=== PATIENT | female | born 1985 | race Hispanic/Latino ===

== ENCOUNTER 2019-03-08 14:44 | Emergency (ER) | payer SELFPAY ==
[2019-03-08 15:42] LABS: Absolute Lymphocytes (CBC) 1.1 K/uL (0.7-4.9); Basophils % 0.2 % (0-1.3); Hematocrit 36.2 % (36.0-45.0); Lymphocytes % 17.7 % (15.3-44.8); MPV 9.4 fL (7.6-11.3); RBC Red Blood Cell Count 3.81 M/uL (3.86-4.86)
[2019-03-08 15:43] LABS: Urine Blood 3+ (NEG); Urine Glucose NEGATIVE (NEG); Urine Protein 2+ (NEG); Urine Specific Gravity 1.025 (1.005-1.030)
[2019-03-08 15:50] LABS: Barbiturates NEGATIVE (NEGATIVE); Benzodiazepines NEGATIVE (NEGATIVE); Cocaine NEGATIVE (NEGATIVE); METHAMPHETAM NEGATIVE (NEGATIVE); Methadone NEGATIVE (NEGATIVE); Opiates NEGATIVE (NEGATIVE); Phencyclidine NEGATIVE (NEGATIVE); THC Cannibis NEGATIVE (NEGATIVE)
[2019-03-08 15:53] LABS: Protime INR 0.99
--- NOTE | 2019-03-08 15:55 | EKG ---
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
[2019-03-08 15:58] LABS: ALT/SGPT 15 U/L (12-78); AST/SGOT 10 U/L (15-37); Albumin 3.8 g/dL (3.4-5.0); Alkaline Phosphatase 42 U/L (45-117); BUN Blood Urea Nitrogen 15 mg/dL (7-18); Bicarbonate 25 mmol/L (21-32); Bilirubin Direct < 0.1 mg/dL (0-0.2); Bilirubin Total 0.2 mg/dL (0.2-1.0); Glucose Level 101 mg/dL (74-106); Potassium 3.5 mmol/L (3.5-5.1); Protein, Total 7.1 g/dL (6.4-8.2); Sodium Level 143 mmol/L (136-145)
[2019-03-08 16:03] LABS: Urine Bacteria 20-50 /HPF (<20); Urine Culture Reflex Order REFLEXED
--- NOTE | 2019-03-08 16:10 | RAD REPORT ---
EXAM DESCRIPTION: CT - Head Brain Wo Cont - 03/08/2019 4:06 pm CLINICAL HISTORY: seizure, LOC Headache, drowsiness, seizure COMPARISON: No comparisons TECHNIQUE: All CT scans are performed using dose optimization technique as appropriate and may inclu de automated exposure control or mA/KV adjustment according to patient size. FINDINGS: No intracranial hemorrhage, hydrocephalus or extra-axial fluid collection.No areas of brai n edema or evidence of midline shift. The paranasal sinuses and mastoids are clear. The calvarium is intact. IMPRESSION: No acute intracranial abnormality.
[2019-03-08] MEDS ORDERED: NA CHLORIDE 0.9% 1,000 ML ONE (16:33)
--- NOTE | 2019-03-08 18:54 | ER ---
Nurse's Notes [facility] Name: Manuela Beauchamp Age: 33 yrs Sex: Female : 1985 Arrival Date: 03/08/2019 Time: 14:48 Bed 27 Private MD: Diagnosis: Seizure Presentation: 03/08 14:48 Presenting complaint: EMS states: patient was eating lunch in her workplace ([employer]) mg2 today when she had a seizure unknown duration. last seizure she had was 5 months ago and she is on medication ( carbamazepine) and she took it \T\ 0500 today. BGL 163 mg/dl. Transition of care: patient was not received from another setting of care. Onset of symptoms was March 08, 2019. Risk Assessment: Do you want to hurt yourself or someone else? Patient reports no desire to harm self or others. Initial Sepsis Screen: Does the patient meet any 2 criteria? No. Patient's initial sepsis screen is negative. Does the patient have a suspected source of infection? No. Patient's initial sepsis screen is negative. Care prior to arrival: None. 14:48 Method Of Arrival: EMS: [place] [id number] 14:48 Acuity: MIKAEL 3 mg2 Triage Assessment: 14:54 General: Appears in no apparent distress. comfortable, Behavior is calm, cooperative. mg2 Pain: Complains of pain in head and abdomen Pain does not radiate. Pain currently is 4 out of 10 on a pain scale. EENT: No deficits noted. Neuro: Level of Consciousness is awake, alert, obeys commands, Oriented to person, place, time, situation, Reports headache. Cardiovascular: Capillary refill < 3 seconds Patient's skin is warm and dry. Respiratory: Airway is patent Respiratory effort is even, unlabored, Respiratory pattern is regular, symmetrical. GI: Reports lower abdominal pain, upper abdominal pain, nausea. : No signs and/or symptoms were reported regarding the genitourinary system. Derm: Skin is intact, is healthy with good turgor, Skin is pink, warm \T\ dry. normal. Musculoskeletal: Circulation, motion, and sensation intact. Capillary refill < 3 seconds. 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 - Social history:: Smoking status: Patient/guardian denies using tobacco. - Ebola Screening: : No symptoms or risks identified at this time. Screenin:55 Abuse screen: Denies threats or abuse. Denies injuries from another. Nutritional mg2 screening: No deficits noted. Tuberculosis screening: No symptoms or risk factors identified. Fall Risk Secondary diagnosis (15 points) seizures. Assessment: 14:55 Reassessment: see triage assessment. mg2 19:01 Reassessment: Patient appears in no apparent distress at this time. Patient denies pain mg2 at this time. Vital Signs: 14:51 BP 130 / 73; Pulse 79; Resp 18; Temp 99.1; Pulse Ox 95% on R/A; Weight 68.95 kg; Height mg2 5 ft. 3 in. (160.02 cm); Pain 4/10; 16:36 BP 128 / 80; Pulse 74; Resp 18; Pulse Ox 100% on R/A; mg2 18:48 BP 117 / 85; Pulse 69; Resp 17; Pulse Ox 98% on R/A; rv 14:51 Body Mass Index 26.93 (68.95 kg, 160.02 cm) mg2 ED Course: 14:48 Patient arrived in ED. mg2 14:51 Triage completed. mg2 14:54 Arm band placed on. mg2 14:56 Patient has correct armband on for positive identification. Pulse ox on. NIBP on. Door mg2 closed. Warm blanket given. 15:04 Daryn Chatterjee, RN is Primary Nurse. mg2 15:04 EKG done, by medtronics technician. reviewed by Ivan Shannon MD. sm3 15:05 No provider procedures requiring assistance completed. Inserted saline lock: 20 gauge mg2 in right antecubital area, using aseptic technique. Blood collected. 15:09 Salty Abdalla PA is PHCP. oswaldo 16:06 CT completed. Patient tolerated procedure well. Patient moved to CT via wheelchair. Patient moved back from CT. 16:11 CT Head Brain wo Cont In Process Unspecified. EDMS 18:37 Alfredo Shannon MD is Referral Physician. jmm 18:49 IV discontinued, intact, bleeding controlled, No redness/swelling at site. Pressure rv dressing applied. 19:23 Primary Nurse role handed off by Daryn Chatterjee, RN mg2 Administered Medications: 16:26 Drug: NS 0.9% 1000 ml Route: IV; Rate: 1 bolus; Site: right antecubital; mg2 18:50 Follow up: IV Status: Completed infusion; IV Intake: 1000ml rv Point of Care Testing: Blood Glucose: 15:05 Blood Glucose: 119 mg/dL; mg2 Ranges: Intake: 18:50 IV: 1000ml; Total: 1000ml. rv Outcome: 18:37 Discharge ordered by . enrique 18:49 Discharged to home ambulatory, WITH CO-WORKERS rv 18:49 Condition: good 18:49 Discharge instructions given to patient, Instructed on discharge instructions, follow up and referral plans. Demonstrated understanding of instructions, follow-up care. 19:02 Patient left the ED. mg2 19:39 Patient left the ED. mg2 Signatures: Dispatcher [employer] EDMS Salty Abdalla PA PA Ulysses Blum Daryn Chatterjee, RN RN mg2 [facility] Owen Rosales RN RN rv
--- NOTE | 2019-03-08 18:55 | EDPHYS ---
Physician Documentation [facility] Name: Manuela Beauchamp Age: 33 yrs Sex: Female : 1985 Arrival Date: 03/08/2019 Time: 14:48 Bed 27 Private MD: ED Physician HPI: 03/08 16:30 This 33 yrs old Female presents to ER via EMS with complaints of seizure, LOC. jmm 16:30 The patient presents the episode(s) was witnessed, by co-worker(s). Character of jmm seizure(s): Loss of consciousness: the patient experienced loss of consciousness, Motor activity: blank stare. Seizure onset: just prior to arrival. This is a 33 year old female with a history seizure. Patient states she does not recall the episode and currently denies history of seizures. According to those whom witnessed the event the patient clinched her jaw. No tongue injury or loss of continence. Patient denies any chest pain, denies shortness of breath. . 18:32 Patient states taking carbamazepine over the past week for musculoskeletal pain. . 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 - Social history:: Smoking status: Patient/guardian denies using tobacco. - Ebola Screening: : No symptoms or risks identified at this time. ROS: 16:30 Constitutional: Negative for fever, chills, and weight loss, Cardiovascular: Negative jmm for chest pain, palpitations, and edema, Respiratory: Negative for shortness of breath, cough, wheezing, and pleuritic chest pain. 16:30 Neuro: Positive for loss of consciousness, seizure activity. 16:30 All other systems are negative. Exam: 16:30 Constitutional: This is a well developed, well nourished patient who is awake, alert, jmm and in no acute distress. Head/Face: atraumatic. Eyes: EOMI, no conjunctival erythema appreciated ENT: Moist Mucus Membranes Neck: Trachea midline, Supple Chest/axilla: Normal chest wall appearance and motion. Cardiovascular: Regular rate and rhythm. No edema appreciated Respiratory: Normal respirations, no respiratory distress appreciated Abdomen/GI: Non distended, soft Back: Normal ROM Skin: General appearance color normal MS/ Extremity: Moves all extremities, no obvious deformities appreciated, no edema noted to the lower extremities Neuro: Awake and alert, normal gait Psych: Behavior is normal, Mood is normal, Patient is cooperative and pleasant 18:51 ECG was reviewed by the Attending Physician. [facility] Vital Signs: 14:51 BP 130 / 73; Pulse 79; Resp 18; Temp 99.1; Pulse Ox 95% on R/A; Weight 68.95 kg; Height mg2 5 ft. 3 in. (160.02 cm); Pain 4/10; 16:36 BP 128 / 80; Pulse 74; Resp 18; Pulse Ox 100% on R/A; mg2 18:48 BP 117 / 85; Pulse 69; Resp 17; Pulse Ox 98% on R/A; rv 14:51 Body Mass Index 26.93 (68.95 kg, 160.02 cm) mg2 MDM: 15:27 Patient medically screened. [facility] 18:32 Data reviewed: vital signs, nurses notes. Counseling: I had a detailed discussion with [facility] the patient and/or guardian regarding: the historical points, exam findings, and any diagnostic results supporting the discharge/admit diagnosis, lab results, radiology results, the need for outpatient follow up, to return to the emergency department if symptoms worsen or persist or if there are any questions or concerns that arise at home. ED course: I discussed the patient with Dr. Shannon whom advised the patient to continue carbamazapine. Will follow up with patient in clinic. . 18:37 Data reviewed:. [facility] 03/08 15:11 Order name: Acetaminophen; Complete Time: 16:23 [facility] 03/08 15:11 Order name: Basic Metabolic Panel; Complete Time: 16:23 [facility] 03/08 15:11 Order name: CBC with Diff; Complete Time: 16: [facility] 03/08 15:11 Order name: ETOH Level; Complete Time: 16:23 [facility] 03/08 15:11 Order name: Hepatic Function; Complete Time: 16:23 [facility] 03/08 15:11 Order name: PT-INR; Complete Time: 16:23 [facility] 03/08 15:11 Order name: Ptt, Activated; Complete Time: 16:23 [facility] 03/08 15:11 Order name: Salicylate; Complete Time: 16:23 [facility] 03/08 15:11 Order name: Urine Drug Screen [facility] 03/08 15:28 Order name: Urine Microscopic Only; Complete Time: 16:23 mg2 03/08 15:40 Order name: Urine Dipstick--Ancillary (enter results) 03/08 15:40 Order name: Urine --Ancillary (enter results) 03/08 15:44 Order name: Urine --Ancillary; Complete Time: 16:23 [facility] 03/08 15:44 Order name: Urine Dipstick-Ancillary; Complete Time: 16:23 [facility] 03/08 15:11 Order name: EKG; Complete Time: 15:18 [facility] 03/08 15:11 Order name: EKG - Nurse/Tech; Complete Time: 15:13 [facility] 03/08 15:11 Order name: IV Saline Lock; Complete Time: 15:13 [facility] 03/08 15:11 Order name: Labs collected and sent; Complete Time: 15:13 [facility] 03/08 15:11 Order name: Urine Dipstick-Ancillary (obtain specimen); Complete Time: 15:28 [facility] 03/08 15:40 Order name: CT Head Brain wo Cont; Complete Time: 16:23 [facility] 03/08 16:12 Order name: Urine Culture [facility] 03/08 16:25 Order name: CPK; Complete Time: 17:31 [facility] 03/08 16:38 Order name: Carbamazepine (tegretol); Complete Time: 17:31 mg2 EC:51 Rate is 77 beats/min. Rhythm is regular. QRS [place] is Normal. [place] interval is normal. QRS jmm interval is normal. QT interval is normal. No Q waves. T waves are Normal. No ST changes noted. Reviewed by me. Administered Medications: 16:26 Drug: NS 0.9% 1000 ml Route: IV; Rate: 1 bolus; Site: right antecubital; mg2 18:50 Follow up: IV Status: Completed infusion; IV Intake: 1000ml rv Point of Care Testing: Blood Glucose: 15:05 Blood Glucose: 119 mg/dL; mg2 Ranges: Critical Glucose Levels:Adult <50 mg/dl or >400 mg/dl <40 mg/dl or >180 mg/dl Disposition: 03/08/19 18:37 Discharged to Home. Impression: Seizure. - Condition is Stable. - Discharge Instructions: Seizure, Adult. - Medication Reconciliation Form, Thank You Letter, Antibiotic Education, Prescription Opioid Use, Work release form form. - Follow up: Alfredo Shannon MD; When: 2 - 3 days; Reason: Recheck today's complaints, Continuance of care, Re-evaluation by your physician. - Notes: Please follow up with Dr. Shannon this week for further evaluation. Please return to the ED if symptoms return. Episode does not appear to be related to occupational exposure. - (NON OCCCUPATIONAL) Signatures: Dispatcher [employer] EDMS Salty Abdalla PA PA Daryn Bacon RN RN mg2 Owen Rosales RN rv Corrections: (The following items were deleted from the chart) 19:02 18:37 03/08/2019 18:37 Discharged to Home. Impression: Seizure. Condition is Stable. mg2 Forms are Medication Reconciliation Form, Thank You Letter, Antibiotic Education, Prescription Opioid Use. Follow up: Alfredo Shannon; When: 2 - 3 days; Reason: Recheck today's complaints, Continuance of care, Re-evaluation by your physician. [facility] 19:39 19:02 03/08/2019 18:37 Discharged to Home. Impression: Seizure. Condition is Stable. mg2 Discharge Instructions: Seizure, Adult. Forms are Medication Reconciliation Form, Thank You Letter, Antibiotic Education, Prescription Opioid Use, Work release form. Follow up: Alfredo Shannon; When: 2 - 3 days; Reason: Recheck today's complaints, Continuance of care, Re-evaluation by your physician. mg2
[2019-03-08 20:14] VITALS: TEMP 99.1
[2019-03-08 20:17] VITALS: BP 117/85; O2SAT 98
== END 2019-03-08 19:39 | disposition home or self-care (01) ==
LOC: ER 14:44
DX: G40.909 Epilepsy, unspecified, not intractable, without status epilepticus (principal)
CPT/HCPCS: 36415; 70450; 80048; 80076; 80156; 80307; 80320; 80329; 81003; 81015; 81025; 82550; 82962; 85025; 85610; 85730; 87086; 87088; 93005; 96360; 96361; 99285; J7030